=== PATIENT | female | born 1945 | race Caucasian/White ===

== ENCOUNTER 2017-11-27 10:55 | Emergency (ER) | payer MEDICARE, BC, SELFPAY ==
[2017-11-27 11:05] VITALS: BP 126/72; PULSE 63; RESP 18; TEMP 37.1; O2SAT 99
--- NOTE | 2017-11-27 12:34 | ED.HA ---
HPI - Headache General Chief Complaint: Headache Stated Complaint: HEADACHE Time Seen by Provider: 11/27/17 12:34 Source: patient and other (Friend at bedside) Mode of arrival: ambulatory Limitations: no limitations History of Present Illness HPI Narrative: This is a 72-year-old female who comes in with complaint of headache for 1 month patient states that the headache is pretty much been global and the yesterday seem to move over to the right side of her head. She then became concerned and came in for evaluation. She actually went to the walk-in clinic about 2 weeks ago for evaluation they recommended that she come to the ER for further of bowel Um but she elected to return home. Patient has not had any other neurologic changes. She states that her eye sometimes feel like they are not quite keeping up Um but otherwise no new vision changes. No facial swelling, no ear pain, no chest pain or shortness of breath. She has a history of carotid stenosis on the left side that was 50%. Patient has not had any abdominal pain. No nausea or vomiting. No new GI or urinary symptoms. She is not having any weakness or numbness in her extremities. No difficulties with speech or a Coby. She has tried several asng-ssr-eukbyux options such as codeine, Tylenol, Advil, Excedrin for migraines. Light does seem to bother little bit loud sounds do not seem to help. But she states it does not seem as bad as other friends who had migraines in the past. She does not have a history of migraines. She did notice that it started a couple weeks after she started a long-acting nitrate for her heart. She did stop the nitrate but continues to have symptoms. Related Data Home Medications Medication Instructions Recorded Confirmed aspirin 81 mg PO QDAY #30 tab 10/24/15 11/27/17 metformin [Glucophage] 500 mg PO BIDCC #0 tab 10/24/15 11/27/17 sertraline 50 mg PO QDAY #0 tab 10/24/15 11/27/17 nitroglycerin [Nitrostat] 0.4 mg SUBLINGUAL PRN PRN #0 10/31/16 11/27/17 buspirone 7.5 mg PO BID 11/27/17 11/27/17 cholecalciferol (vitamin D3) 1,000 unit PO DAILY 11/27/17 11/27/17 metoprolol succinate 25 mg PO DAILY 11/27/17 11/27/17 multivitamin 1 tab PO DAILY 11/27/17 11/27/17 rosuvastatin 40 mg PO DAILY 11/27/17 11/27/17 spironolactone 25 mg PO DAILY 11/27/17 11/27/17 Previous Rx's Medication Instructions Recorded pyjlaxeppm-oxwhskfdxjtnj-exrn 1 cap PO Q4H PRN #10 cap 11/27/17 [Fioricet] Allergies Allergy/AdvReac Type Severity Reaction Status Date / Time No Known Drug Allergies Allergy Verified 11/27/17 13:21 Review of Systems Review of Systems All systems reviewed & are unremarkable except as noted in HPI and below Constitutional Denies chills, Denies fever(s), Reports headache(s), Denies lethargy and Denies weakness Eyes Denies blurry vision, Denies diplopia, Denies loss of peripheral vision, Denies loss of vision and Reports other visual disturbances ENT Ears, Nose, Mouth, and Throat: Denies otalgia, Denies facial pain, Reports headache(s) and Denies neck pain Cardiovascular Denies chest pain, Denies irregular heart rhythm, Denies lightheadedness, Denies palpitations, Denies dyspnea, Denies dyspnea on exertion and Denies orthopnea Respiratory Denies cough, Denies dyspnea, Denies dyspnea on exertion and Denies wheezing Gastrointestinal Gastrointestinal: Denies abdominal pain, Denies change in bowel habits, Denies diarrhea, Denies nausea and Denies vomiting Musculoskeletal Denies abnormal gait, Denies neck pain and Denies tingling Integumentary/Breasts Denies rash Neurologic Reports as per HPI, Denies abnormal movements, Denies abnormal speech, Denies abnormal gait, Reports headache(s), Denies lack of coordination, Denies focal weakness, Denies loss of vision, Denies sensory deficit, Denies tingling, Denies paresthesias and Denies weakness Endocrine Denies palpitations Allergic/Immunologic Denies wheezing PFSH Medical History Coronary artery disease (Acute) Diabetes (Acute) Dyslipidemia (Acute) Hypertension (Acute) Surgical History H/O cardiac catheterization (Acute) Social History Smoking Status: Never smoker Exam Narrative Exam Narrative: GEN: well nourished, well appearing female, alert and oriented x 3, patient appears to be in no acute distress. HEENT: Atraumatic, pupils are equal round reactive to light, extraocular movements are intact, no nystagmus, nares are clear, TMs are clear with no fluid, there is no conjunctival pallor. Throat is clear without any exudates, erythema, tonsillar enlargement or uvular deviation HEART: Regular rate and rhythm without murmur, clicks, rubs. No carotid bruits, pulses are equal in upper and lower extremities LUNGS:Lungs clear to auscultation, no wheezes, rales, crackles, chest moves symmetrically ABD:bowel sounds normal, soft, non-tender, no guarding, rebound, rigidity, no masses noted, no hepatosplenomegaly MSCL: Non-tender, no muscle atrophy, muscles strength 5/5 upper and lower extremities, full range of motion, normal gait NEURO:CN 2-12 intact, sensation normal, reflexes 2/4 upper and lower extremities. finger nose finger test normal, heel browning test normal, normal gait Initial Vital Signs Initial Vital Signs: Vital Signs Temperature 98.7 F 11/27/17 11:05 Pulse Rate 63 11/27/17 11:05 Respiratory Rate 18 11/27/17 11:05 Blood Pressure 126/72 11/27/17 11:05 Pulse Oximetry 99 11/27/17 11:05 Scores NIH Stroke Scale Level of Conciousness: Alert, keenly responsive Ask month/age: Answers both questions correctly. Open/close eyes, close hand: Performs both tasks correctly Best gaze horizontal: Normal Visual miller: No visual loss Facial palsy: Normal symetrical movement Left arm drift: No drift for full 10 sec Right arm drift: No drift for full 10 sec Left leg drift: No drift for full 10 sec Right leg drift: No drift for full 10 sec Limb ataxia: Absent Sensory on face/arms/legs: Normal, no sensory loss Best language: No aphasia, normal Dysarthria: Normal Extinction or inattention: No abnormality Total NIH Stroke scale score: 0 Course Orders Ordered: ED Orders 11/27/17 13:01 CT head/brain wo con Stat 11/27/17 13:30 Basic Metabolic Panel Stat Complete Blood Count AUTO DIFF Stat Partial Thromboplastin Time Stat Prothrombin Time INR Stat Discontinued Medications Diphenhydramine HCl (Benadryl) 25 mg IV NOW ONE Stop: 11/27/17 13:01 Last Admin: 11/27/17 13:40 Dose: 25 mg Sodium Chloride (Normal Saline 0.9%) 1,000 mls @ 1,000 mls/hr IV BOLUS ONE Stop: 11/27/17 13:59 Last Infusion: 11/27/17 14:42 Dose: 0 mls/hr Admin: 11/27/17 13:41 Dose: 1,000 mls/hr Metoclopramide HCl (Reglan) 10 mg IV NOW ONE Stop: 11/27/17 13:01 Last Admin: 11/27/17 13:40 Dose: 10 mg Vital Signs - 8 hr 11/27/17 14:06 Pulse Rate 63 Respiratory Rate 15 Blood Pressure [Right Arm] 115/78 Pulse Oximetry 98 MDM - Headache Differential Diagnosis Differential diagnosis: Likely migraine, tension headache, subarachnoid hemorrhage, meningitis and other (CVA vs. mass) Lab Data Attestation: I reviewed the patient's lab results. Result diagrams: 11/27/17 13:30 11/27/17 13:30 Lab Results 11/27/17 11/27/17 11/27/17 Range/Units 13:30 13:30 13:30 WBC 4.8 (4.5-11.0) X10^3/uL RBC 4.18 (4.0-5.2) X10^6/uL Hgb 13.2 (12.0-16.0) g/dL Hct 37.5 (36-46) % MCV 89.7 (80-100) fL MCH 31.5 (26-34) PG MCHC 35.1 (30-36) % RDW 14.3 (11.6-14.8) % Plt Count 176 (150-400) X10^3/uL Neut % (Auto) 62.0 (50-75) % Lymph % (Auto) 27.5 (25-40) % [place] % (Auto) 8.0 (3-14) % Eos % (Auto) 1.8 L (2-4) % Baso % (Auto) 0.7 (0-2) % Neut # (Auto) 3000 (6008-9060) /uL PT 11.3 (10.1-12.7) SECONDS INR 1.1 (0.9-1.3) APTT 28 (26.4-36.2) SECONDS Sodium 141 (137-145) mmol/L Potassium 4.3 (3.4-5.1) mmol/L Chloride 102 (98-107) mmol/L Carbon Dioxide 27 (22-32) mmol/L BUN 17 (7-17) mg/dL Creatinine 0.70 (0.52-1.04) mg/dL Estimated GFR > 60.0 (>60) mL/min BUN/Creatinine Ratio 24.3 H (6-22) Glucose 103 (80-110) mg/dL Calcium 9.9 (8.4-10.2) mg/dL Imaging Data CT scan - head: Radiologist's impression: [address] [address] [address] Scan Report Signed Patient: Phoebe Lowery LMR#: [id number] : 1946Acct:[id number] Age/Sex: 72 / FDate of Service: 11/27/17 Loc: ED Accession Number: [id number] Procedure: CT head/brain wo con Ordering Provider: Eden Bowens D.O. PROCEDURE: CT HEAD/BRAIN WO CON INDICATIONS: headache x 1 month, now on right side. no hx migraines TECHNIQUE: Noncontrast 4.5 mm thick angled axial sections acquired from the foramen magnum to the vertex, with coronal and sagittal reformats. For radiation dose reduction, the following was used: automated exposure control, adjustment of mA and/or kV according to patient size. COMPARISON: None. FINDINGS: Image quality: Excellent. CSF spaces: Basal cisterns are patent. No extra-axial fluid collections. Ventricles are normal in size and shape. Brain: No midline shift. No intracranial masses or hemorrhage. Hayes-white matter interface is normal. Skull and face: Calvarium and visualized facial bones are intact, without suspicious lesions. Sinuses: Visualized sinuses and mastoids are clear. IMPRESSION: No acute intracranial disease process. Dictated by: Anahy Hendrix MD, PhD on 11/27/2017 at 13:51 Approved by: Anahy Hendrix MD, PhD on 11/27/2017 at 13:55 [facility] Narrative Medical decision making narrative: Patient had Ct imaging of head secondary to concern for bleed, mass or other intracranial cause of headache. CVA was considered but less likely with no focal neurologic changes. Patient was improved after medications and plan for follow up. We did discuss follow up with neurology would be appropriate if continuing symptoms. Patient labs did not show any lyte abnormalities that would cause symptoms, ect. Discharge Plan Departure Patient Disposition: Home Clinical Impression: Headache Discharge Date/Time: 11/27/17 14:43 Interventions: ED Discharge Assessment Last Done: 11/27/17 14:42 Instructions: DI for Headache Activity Restrictions/Additional Instructions: Follow-up with your primary care physician in the next 2-3 days for recheck. Call tomorrow morning for an appointment. Take medication as prescribed for headache, this medication can sometimes make you sleepy do not drive, perform hazards activities or make any major decisions while taking it. Make sure that your drinking plenty of fluids. Return to the emergency department for fevers greater than 100.4, new neurologic changes or difficulty with speech, new weakness or numbness, difficulty walking or Other new or concerning symptoms. Prescriptions: New qtyrovnpbx-kczxvgizntfpt-ozjs [Fioricet] 50-300-40 mg capsule 1 cap PO Q4H PRN (Reason: pain) Qty: 10 RF: 0 No Action metformin [Glucophage] 500 MG tablet 500 mg PO BIDCC Qty: 0 RF: 0 aspirin 81 MG tablet,delayed release (DR/EC) 81 mg PO QDAY Qty: 30 RF: 0 sertraline 50 MG tablet 50 mg PO QDAY Qty: 0 RF: 0 nitroglycerin [Nitrostat] 0.4 MG tablet, sublingual 0.4 mg Sublingual PRN PRN (Reason: Chest Pain) Qty: 0 RF: 0 multivitamin Tablet 1 tab PO DAILY RF: 0 spironolactone 25 mg Tablet 25 mg PO DAILY RF: 0 buspirone 7.5 mg Tablet 7.5 mg PO BID RF: 0 metoprolol succinate 25 mg Tablet Extended Release 24 Hr 25 mg PO DAILY RF: 0 cholecalciferol (vitamin D3) 1,000 unit Capsule 1,000 unit PO DAILY RF: 0 rosuvastatin 40 mg Tablet 40 mg PO DAILY RF: 0
--- NOTE | 2017-11-27 13:01 | DI.CT.S_ITS ---
PROCEDURE: CT HEAD/BRAIN WO CON INDICATIONS: headache x 1 month, now on right side. no hx migraines TECHNIQUE: Noncontrast 4.5 mm thick angled axial sections acquired from the foramen magnum to the vertex, with coronal and sagittal reformats. For radiation dose reduction, the following was used: automated exposure control, adjustment of mA and/or kV according to patient size. COMPARISON: None. FINDINGS: Image quality: Excellent. CSF spaces: Basal cisterns are patent. No extra-axial fluid collections. Ventricles are normal in size and shape. Brain: No midline shift. No intracranial masses or hemorrhage. Hayes-white matter interface is normal. Skull and face: Calvarium and visualized facial bones are intact, without suspicious lesions. Sinuses: Visualized sinuses and mastoids are clear. IMPRESSION: No acute intracranial disease process. Dictated by: Anahy Hendrix MD, PhD on 11/27/2017 at 13:51 Approved by: Anahy Hendrix MD, PhD on 11/27/2017 at 13:55
[2017-11-27 13:40] LABS: Add Manual Diff / Slide Review NO; Basophils Percent Auto 0.7 % (0-2); Eosinophils Percent Auto 1.8 % (2-4); Hematocrit 37.5 % (36-46); Hemoglobin 13.2 g/dL (12.0-16.0); Lymphocytes Percent Auto 27.5 % (25-40); Mean Corpuscular HGB Conc 35.1 % (30-36); Mean Corpuscular Hemoglobin 31.5 PG (26-34); Mean Corpuscular Volume 89.7 fL (80-100); Neutrophils Absolute Auto 3000 /uL (3000-5900); Platelet Count 176 X10^3/uL (150-400); Red Blood Cell Count 4.18 X10^6/uL (4.0-5.2); Red Cell Distribution Width 14.3 % (11.6-14.8); White Blood Cell Count 4.8 X10^3/uL (4.5-11.0)
[2017-11-27] MEDS: diphenhydrAMINE 50 MG/ML VIAL 25 MG IV (13:40)
[2017-11-27] MEDS: METOCLOPRAMIDE 10 MG/2 ML INJ IV (13:40)
[2017-11-27] MEDS: SODIUM CHLORIDE 0.9% 1,000 ML 1000 ML IV (13:41)
[2017-11-27 13:47] LABS: INR 1.1 (0.9-1.3); Prothrombin Time 11.3 SECONDS (10.1-12.7)
[2017-11-27 13:50] LABS: PTT Partial Thromboplastin Tim 28 SECONDS (26.4-36.2)
[2017-11-27 13:51] LABS: BUN Creatinine Ratio 24.3 (6-22); Blood Urea Nitrogen 17 mg/dL (7-17); Calcium 9.9 mg/dL (8.4-10.2); Carbon Dioxide 27 mmol/L (22-32); Chloride 102 mmol/L (98-107); Estimated Glomerular Filt Rate > 60.0 mL/min (>60); Glucose 103 mg/dL (80-110); HEMOLYSIS 17 (0-50); Potassium 4.3 mmol/L (3.4-5.1); Sodium 141 mmol/L (137-145)
[2017-11-27 14:06] VITALS: BP 115/78; PULSE 63; RESP 15; O2SAT 98
== END 2017-11-27 14:43 | disposition home or self-care (01) ==
PROVIDERS: Emergency Provider Emergency Medicine
DX: R51 Headache (principal)
CPT/HCPCS: 36591; 70450; 80048; 85025; 85610; 85730; 96361; 96374; 96375; 99283; 99284; J1200; J2765

== ENCOUNTER 2018-12-29 11:39 | Emergency (ER) | payer MEDICARE, BC, SELFPAY ==
[2018-12-29 11:40] VITALS: BP 155/95; PULSE 86; RESP 14; TEMP 36.7; O2SAT 97; BMI 30.4
--- NOTE | 2018-12-29 11:44 | ED_ITS ---
HPI - General Adult General Chief complaint: Dizziness Stated complaint: feels like heart is beating her head Time Seen by Provider: 12/29/18 11:41 Source: patient Mode of arrival: Ambulatory Limitations: no limitations History of Present Illness HPI narrative: 73-year-old female here for evaluation of a headache that she had this morning. She states that she felt like she could feel her heartbeat in her head. She states that she drink her coffee and took some aspirin this morning and this seemed to greatly improve her symptoms. Does appear that over the past month she has had daily symptoms like this. She states that the symptoms this morning were just worse than normal. In character the field just like her symptoms that she has had every morning. She was seen here in the emergency department approximately 1 month ago for similar symptoms. Was treated with Reglan and Benadryl which she states resolved her symptoms. Had a head CT at that time that was unremarkable. She states that she has never been diagnosed with migraine headaches. She has talked with her primary doctor who did put in referral to see Neurology however she missed that appointment because she forgot about it. She is not having any chest pain or shortness of breath. Does have a history of angina for which she occasionally takes nitro for this has been several weeks since she has had to do this. She did not take any nitro this morning. She described no numbness or tingling in arms or legs. She does get somewhat lightheaded when the symptoms are on. She does not live with anyone. She does have carbon monoxide detectors in her house and she states that these are not going off. She has no pets at home. By the time my evaluation states that her symptoms have greatly improved since this morning. She does states she drinks approximately 2-3 cups of coffee on a daily basis. She does admit that she does not drink coffee she gets a very bad headache. Related Data Home Medications Medication Instructions Recorded Confirmed aspirin 81 mg PO QDAY #30 tab 10/24/15 11/27/17 metformin [Glucophage] 500 mg PO BIDCC #0 tab 10/24/15 11/27/17 sertraline 50 mg PO QDAY #0 tab 10/24/15 11/27/17 nitroglycerin [Nitrostat] 0.4 mg SUBLINGUAL PRN PRN #0 10/31/16 11/27/17 buspirone 7.5 mg PO BID 11/27/17 11/27/17 cholecalciferol (vitamin D3) 1,000 unit PO DAILY 11/27/17 11/27/17 metoprolol succinate 25 mg PO DAILY 11/27/17 11/27/17 multivitamin 1 tab PO DAILY 11/27/17 11/27/17 rosuvastatin 40 mg PO DAILY 11/27/17 11/27/17 spironolactone 25 mg PO DAILY 11/27/17 11/27/17 losartan 25 mg PO DAILY 12/29/18 12/29/18 Previous Rx's Medication Instructions Recorded jjoybjbmby-nhiqrwlhrjjrx-flic 1 cap PO Q4H PRN #10 cap 11/27/17 [Fioricet] ytzblknkol-kilifdnlioizx-mtqn 1 cap PO Q6H PRN #10 cap 12/29/18 [Fioricet] Allergies Allergy/AdvReac Type Severity Reaction Status Date / Time No Known Drug Allergies Allergy Verified 11/27/17 13:21 Review of Systems Constitutional Constitutional: Denies chills, Denies fatigue, Denies fever(s) and Reports headache(s) Eyes Eyes: Denies change in vision and Denies photophobia ENT Ears, Nose, Mouth, and Throat: Denies vertigo, Reports dizziness, Reports headache(s), Denies neck pain, Reports disequilibrium, Denies sinus pressure and Denies sore throat Cardiovascular Cardiovascular: Denies chest pain, Reports palpitations and Denies dyspnea Respiratory Respiratory: Denies dyspnea Gastrointestinal Gastrointestinal: Denies abdominal pain, Denies nausea and Denies vomiting Musculoskeletal Musculoskeletal: Denies myalgias, Denies arthralgias, Denies neck pain and Denie s numbness Integumentary/Breasts Skin/Breast: Denies lesions and Denies rash Neurologic Neurologic: Denies behavioral changes, Denies vertigo, Reports dizziness, Reports headache(s), Denies numbness, Denies paresthesias and Reports disequilibrium Psychiatric Psychiatric: Denies behavioral changes Endocrine Endocrine: Denies fatigue and Reports palpitations Hematologic/Lymphatic Hematologic/Lymphatic: Denies easy bleeding and Denies easy bruising Patient History Medical History Coronary artery disease (Acute) Diabetes (Acute) Dyslipidemia (Acute) Hypertension (Acute) Surgical History (Updated 11/27/17 @ 13:31 by Eden Bowens DO) H/O cardiac catheterization (Acute) Social History Smoking Status: Never smoker alcohol intake frequency: 0-2 drinks per day Substance Use Type: does not use Exam Initial Vital Signs Initial Vital Signs: Vital Signs Temperature 98.1 F 12/29/18 11:40 Pulse Rate 86 12/29/18 11:40 Respiratory Rate 14 12/29/18 11:40 Blood Pressure 155/95 H 12/29/18 11:40 Pulse Oximetry 97 12/29/18 11:40 Const General: cooperative, comfortable, well developed, well groomed and No acute distress Orientation: alert, awake and oriented x3 HENMT Head: normal to inspection and normocephalic Eyes Pupils: PERRL EOM: EOM intact bilaterally Resp Effort & Inspection: normal respiratory effort Auscultation: clear to auscultation bilaterally Cardio Rate: regular rate Rhythm: regular rhythm GI Inspection: normal to inspection and non-distended Skin Lesions: no lesions Rashes: no rashes Neuro General: alert and awake Cognition: normal cognition Speech: speech normal Gait: normal gait Extrem General: normal to inspection and capillary refill normal Psych Appearance: grossly normal and well kempt Scores GCS [place] coma scale eye opening: Spontaneous [place] coma scale verbal response: Orientated [place] coma scale motor response: Obey commands [place] coma scale total score: 15 NIH Stroke Scale Level of Conciousness: Alert, keenly responsive Ask month/age: Answers both questions correctly. Open/close eyes, close hand: Performs both tasks correctly Best gaze horizontal: Normal Visual miller: No visual loss Facial palsy: Normal symetrical movement Left arm drift: No drift for full 10 sec Right arm drift: No drift for full 10 sec Left leg drift: No drift for full 10 sec Right leg drift: No drift for full 10 sec Limb ataxia: Absent Sensory on face/arms/legs: Normal, no sensory loss Best language: No aphasia, normal Dysarthria: Normal Extinction or inattention: No abnormality Total NIH Stroke scale score: 0 Course Orders Ordered: ED Orders 12/29/18 11:43 EKG-12 Lead Stat 12/29/18 11:50 Complete Blood Count AUTO DIFF Stat Comprehensive Metabolic Panel Stat Lipase Stat Vital Signs Vital signs: Vital Signs - 8 hr 12/29/18 11:40 12/29/18 12:00 Temperature 98.1 F Pulse Rate 86 82 Respiratory Rate 14 22 Blood Pressure 155/95 H Pulse Oximetry 97 99 Medical Decision Making Medical Records Medical records reviewed: Yes I reviewed the patient's medical records. Lab Data Lab results reviewed: Yes I reviewed the patient's lab results. Result diagrams: 12/29/18 11:50 12/29/18 11:50 Labs: Lab Results 12/29/18 12/29/18 Range/Units 11:50 11:50 WBC 4.6 (4.5-11.0) X10^3/uL RBC 4.72 (4.0-5.2) X10^6/uL Hgb 15.1 (12.0-16.0) g/dL Hct 43.3 (36-46) % MCV 91.6 (80-100) fL MCH 31.9 (26-34) PG MCHC 34.8 (30-36) % RDW 13.8 (11.6-14.8) % Plt Count 185 (150-400) X10^3/uL Neut % (Auto) 60.3 (50-75) % Lymph % (Auto) 26.9 (25-40) % [place] % (Auto) 9.6 (3-14) % Eos % (Auto) 1.8 L (2-4) % Baso % (Auto) 1.4 (0-2) % Neut # (Auto) 2700 (1600-0396) /uL Lymph # (Auto) 1200 (0646-2492) /uL [place] # (Auto) 400 (0-900) /uL Eos # (Auto) 100 (0-450) /uL Baso # (Auto) 100 (0-100) /uL Sodium 141 (137-145) mmol/L Potassium 4.4 (3.4-5.1) mmol/L Chloride 106 (98-107) mmol/L Carbon Dioxide 23 (22-32) mmol/L BUN 18 H (7-17) mg/dL Creatinine 0.70 (0.52-1.04) mg/dL Estimated GFR > 60.0 (>60) mL/min BUN/Creatinine Ratio 25.7 H (6-22) Glucose 125 H (80-110) mg/dL Calcium 10.2 (8.4-10.2) mg/dL Total Bilirubin 0.7 (0.2-1.3) mg/dL AST 30 (14-36) IU/L ALT 31 (9-52) IU/L Alkaline Phosphatase 68 (38-126) U/L Total Protein 8.4 H (6.3-8.2) g/dL Albumin 5.0 (3.5-5.0) g/dL Globulin 3.4 (1.7-4.1) g/dL Albumin/Globulin Ratio 1.5 (1.0-2.8) Lipase 77 (23-300) U/L ECG Data Attestation: I personally reviewed and interpreted this ECG as follows: Prior ECG tracings: not available for review Interpretation: Sinus rhythm Ventricular rate 82 LVH Left axis deviation Normal QRS Normal QTC No ST T wave changes MDM Narrative Medical decision making narrative: Patient's symptoms are improved by the time my evaluation. Has a normal neurologic exam. She has had daily symptoms for the past month. I have low suspicion for CVA or TIA. I do suspect that she is having a variant of a migraine seeing as how her symptoms do improved/resolved when she drinks caffeine in the morning and then as the caffeine wears off she starts again headache again. There also could be a component of caffeine tolerance/dependence. She states she has taken Fioricet in the past. Unsure if this has helped her symptoms. Considered other etiologies such as carbon monoxide poisoning since she is having symptoms in the mornings however this does not seem to be the case. She does have a primary provider. She has talk to the primary provider in the past about referral see Neurology which I do recommend. I feel given her workup today and her symptoms which she describes that head CT is not warranted. She was given strict return precautions and follow-up instructions. She expressed understanding and agreement with plan. Discharge Plan Departure Patient Disposition: Home Clinical Impression: Palpitations Headache Qualifiers: Headache type: other headache syndrome Qualified Code(s): G44.89 - Other headache syndrome Instructions: DI for Migraine Activity Restrictions/Additional Instructions: I recommend that you talk with your primary doctor about a new referral to see Neurology. Continue all of your medications as directed return to the emergency department for any new or worsening symptoms Prescriptions: New seybmnoksx-yarwtyzbgjuis-asga [Fioricet] 50-300-40 mg capsule 1 cap PO Q6H PRN (Reason: pain) Qty: 10 RF: 0 No Action metformin [Glucophage] 500 MG tablet 500 mg PO BIDCC Qty: 0 RF: 0 aspirin 81 MG tablet,delayed release (DR/EC) 81 mg PO QDAY Qty: 30 RF: 0 sertraline 50 MG tablet 50 mg PO QDAY Qty: 0 RF: 0 nitroglycerin [Nitrostat] 0.4 MG tablet, sublingual 0.4 mg Sublingual PRN PRN (Reason: Chest Pain) Qty: 0 RF: 0 multivitamin Tablet 1 tab PO DAILY RF: 0 spironolactone 25 mg Tablet 25 mg PO DAILY RF: 0 buspirone 7.5 mg Tablet 7.5 mg PO BID RF: 0 metoprolol succinate 25 mg Tablet Extended Release 24 Hr 25 mg PO DAILY RF: 0 cholecalciferol (vitamin D3) 1,000 unit Capsule 1,000 unit PO DAILY RF: 0 rosuvastatin 40 mg Tablet 40 mg PO DAILY RF: 0 wxysiqkdoz-akmzfgvsutgxk-fahk [Fioricet] 50-300-40 mg capsule 1 cap PO Q4H PRN (Reason: pain) Qty: 10 RF: 0 losartan 25 mg tablet 25 mg PO DAILY RF: 0
[2018-12-29 12:00] VITALS: BP 159/92; PULSE 80; PULSE 82; RESP 16; RESP 22; O2SAT 99
[2018-12-29 12:10] LABS: Alanine Aminotransferase 31 IU/L (9-52); Albumin Globulin Ratio 1.5 (1.0-2.8); Alkaline Phosphatase 68 U/L (38-126); Aspartate Aminotransferase 30 IU/L (14-36); BUN Creatinine Ratio 25.7 (6-22); Bilirubin Total 0.7 mg/dL (0.2-1.3); Blood Urea Nitrogen 18 mg/dL (7-17); Calcium 10.2 mg/dL (8.4-10.2); Carbon Dioxide 23 mmol/L (22-32); Chloride 106 mmol/L (98-107); Estimated Glomerular Filt Rate > 60.0 mL/min (>60); Globulin 3.4 g/dL (1.7-4.1); Glucose 125 mg/dL (80-110); HEMOLYSIS < 15 (0-50); Lipase 77 U/L (23-300); Potassium 4.4 mmol/L (3.4-5.1); Sodium 141 mmol/L (137-145); Total Protein 8.4 g/dL (6.3-8.2)
[2018-12-29 12:12] LABS: Add Manual Diff / Slide Review NO; Basophils Absolute Auto 100 /uL (0-100); Basophils Percent Auto 1.4 % (0-2); Eosinophils Absolute Auto 100 /uL (0-450); Eosinophils Percent Auto 1.8 % (2-4); Hematocrit 43.3 % (36-46); Hemoglobin 15.1 g/dL (12.0-16.0); Lymphocytes Absolute Auto 1200 /uL (1100-4500); Lymphocytes Percent Auto 26.9 % (25-40); Mean Corpuscular HGB Conc 34.8 % (30-36); Mean Corpuscular Hemoglobin 31.9 PG (26-34); Mean Corpuscular Volume 91.6 fL (80-100); Monocytes Absolute Auto 400 /uL (0-900); Monocytes Percent Auto 9.6 % (3-14); Neutrophils Absolute Auto 2700 /uL (1500-7000); Neutrophils Percent Auto 60.3 % (50-75); Platelet Count 185 X10^3/uL (150-400); Red Blood Cell Count 4.72 X10^6/uL (4.0-5.2); Red Cell Distribution Width 13.8 % (11.6-14.8); White Blood Cell Count 4.6 X10^3/uL (4.5-11.0)
[2018-12-29 12:45] VITALS: BP 130/78; PULSE 77; RESP 14; O2SAT 97
== END 2018-12-29 12:58 | disposition home or self-care (01) ==
PROVIDERS: Emergency Provider Emergency Medicine
DX: R00.2 Palpitations (principal); G44.89 Other headache syndrome
CPT/HCPCS: 36415; 80053; 83690; 85025; 93005; 99283; 99284

== ENCOUNTER 2020-06-25 05:18 | Emergency (ER) | payer MEDICARE, BC, SELFPAY ==
--- NOTE | 2020-06-25 05:22 | ED.GENADULT ---
HPI - General Adult General Stated complaint: thinks she has blood clot in lower left leg Time Seen by Provider: 06/25/20 05:20 Source: patient Mode of arrival: Ambulatory Limitations: no limitations History of Present Illness HPI narrative: 75-year-old female here for evaluation of a swelling/bruise to her left lower leg. States she went to sleep last night feeling fine and woke up this morning to let the dogs out when she noticed discomfort with standing in her left lower leg. She denies any trauma. She is not on antibiotics. No chest pain. No shortness of breath. No redness over the area. She states she was concerned about a blood clot because she received the 2nd COVID-19 vaccine 2 weeks ago. Related Data Home Medications Medication Instructions Recorded Confirmed aspirin 81 mg PO DAILY #30 tab 10/24/15 12/29/18 metformin [Glucophage] 250 mg PO QAM #0 tab 10/24/15 12/29/18 sertraline 25 mg PO QPM #0 tab 10/24/15 12/29/18 nitroglycerin [Nitrostat] 0.4 mg SUBLINGUAL PRN PRN #0 10/31/16 12/29/18 buspirone 3.75 mg PO QPM 11/27/17 12/29/18 cholecalciferol (vitamin D3) 1,000 unit PO DAILY 11/27/17 12/29/18 metoprolol succinate 25 mg PO DAILY 11/27/17 12/29/18 multivitamin 1 tab PO DAILY 11/27/17 12/29/18 rosuvastatin 40 mg PO QPM 11/27/17 12/29/18 spironolactone 25 mg PO DAILY 11/27/17 12/29/18 Fish Oil 1 cap PO DAILY 12/29/18 12/29/18 losartan 25 mg PO DAILY 12/29/18 12/29/18 Previous Rx's Medication Instructions Recorded vsgqrfzbcs-wswxuxrdtjsmn-xhuy 1 cap PO Q6H PRN #10 cap 12/29/18 [Fioricet] Allergies Allergy/AdvReac Type Severity Reaction Status Date / Time No Known Drug Allergies Allergy Verified 11/27/17 13:21 Review of Systems Constitutional Constitutional: Denies fever(s) and Denies headache(s) ENT Ears, Nose, Mouth, and Throat: Denies headache(s) Cardiovascular Cardiovascular: Denies chest pain and Denies dyspnea Respiratory Respiratory: Denies dyspnea Gastrointestinal Gastrointestinal: Denies abdominal pain Musculoskeletal Musculoskeletal: Denies tingling Comments: Left lower leg pain Integumentary/Breasts Comments: Bruising left lower leg Neurologic Neurologic: Denies headache(s) and Denies tingling Hematologic/Lymphatic On Anticoagulants: No Allergic/Immunologic Allergic/Immunologic: Denies urticaria Patient History Medical History Coronary artery disease Diabetes Dyslipidemia Hypertension Surgical History (Updated 11/27/17 @ 13:31 by Eden Bowens DO) H/O cardiac catheterization Social History Smoking Status: Never smoker Smoking Status: Never smoker alcohol intake frequency: 0-2 drinks per day Substance Use Type: does not use Exam Const General: cooperative and comfortable HENMT Head: normal to inspection Resp Effort & Inspection: normal respiratory effort Cardio Pulses: dorsalis pedis present on the left Skin Other: On the distal 1/3 of her left lower extremity on the anterior medial aspect there is a 3 cm x 5 cm area bruising. There is no surrounding erythema. Extrem Other: No tenderness along the posterior aspect of her calf. No tenderness with flexion extension of the ankle. No tenderness behind the left knee. Medical Decision Making MDM Narrative Medical decision making narrative: Patient's physical exam is very much consistent with a subcutaneous hematoma/bruise. She states she does not know of any specific trauma to that area. She has been ambulatory. I have low suspicion for fracture. Bedside ultrasound does not show any deep fluid collection that would be concerning for an abscess plus her physical exam is not consistent with an abscess. If she had said she hit her leg it would be a very clear-cut diagnosis of a contusion because of this however she denies any trauma. This still very much could be a spontaneous subcutaneous hematoma. I have low suspicion for DVT given her presentation. I feel we can hold on further workup for now. Provided reassurance to the patient. She was given return precautions. She expressed understanding and agreement. Discharge Plan Departure Patient Disposition: Home Clinical Impression: Hematoma and contusion Instructions: DI for Hematoma (Bruise) Activity Restrictions/Additional Instructions: I recommend you keep ice over the area and keep your leg elevated. Continue all of your medications as directed. Contact your Primary provider for a follow up. Return to the ER for any new or worsening symptoms. Prescriptions: No Action metformin [Glucophage] 500 MG tablet 250 mg PO QAM Qty: 0 RF: 0 aspirin 81 MG tablet,delayed release (DR/EC) 81 mg PO DAILY Qty: 30 RF: 0 sertraline 50 MG tablet 25 mg PO QPM Qty: 0 RF: 0 nitroglycerin [Nitrostat] 0.4 MG tablet, sublingual 0.4 mg Sublingual PRN PRN (Reason: Chest Pain) Qty: 0 RF: 0 multivitamin Tablet 1 tab PO DAILY RF: 0 spironolactone 25 mg Tablet 25 mg PO DAILY RF: 0 buspirone 7.5 mg Tablet 3.75 mg PO QPM RF: 0 metoprolol succinate 25 mg Tablet Extended Release 24 Hr 25 mg PO DAILY RF: 0 cholecalciferol (vitamin D3) 1,000 unit Capsule 1,000 unit PO DAILY RF: 0 rosuvastatin 40 mg Tablet 40 mg PO QPM RF: 0 losartan 25 mg tablet 25 mg PO DAILY RF: 0 Fish Oil 1 cap PO DAILY RF: 0 lavhpcznow-eivcutnatrykg-dndv [Fioricet] 50-300-40 mg capsule 1 cap PO Q6H PRN (Reason: pain) Qty: 10 RF: 0
[2020-06-25 05:44] VITALS: BP 162/77; PULSE 71; RESP 20; TEMP 36.2; O2SAT 98; BMI 31.8
== END 2020-06-25 05:58 | disposition home or self-care (01) ==
PROVIDERS: Emergency Provider Emergency Medicine
DX: S80.12XA Contusion of left lower leg, initial encounter (principal)
CPT/HCPCS: 99281

== ENCOUNTER 2022-08-23 09:48 | Day surgery (SDC) | payer MEDICARE, BC, SELFPAY ==
--- NOTE | 2022-08-23 | PATH_ITS ---
[facility] Accession Number: [id number] No. of containers..01 Tissue . 01 Material submitted: . rectum - RECTOCEL POLYP . 01 Diagnosis: Rectum, Polypectomy: Hyperplastic polyp. MRV 08/27/2022 1515 Local . 01 Electronically signed: . Trista Victoria MD, Pathologist NPI- [id number] . 01 Gross description: . The specimen is received in formalin labeled with the patient's name, , and rectocel polyp and consists of a single iniguez soft tissue fragment measuring 0.2 cm in greatest dimension. Submitted entirely in cassette A1. ([id number]) /MRV 08/25/2022 1827 Local . 01 Pathologist provided ICD-10: K62.1 . 01 CPT . 742026 Specimen Comment: A courtesy copy of this report has been sent to [phone] Performed at: 01 [facility] [address] [place] [address] Suite [facility], [place], [place] [id number] MD Herbie Wilcox MD Phone: [phone]
[2022-08-23 10:07] VITALS: BMI 30.1
[2022-08-23 10:19] VITALS: BP 124/82; PULSE 93; RESP 16; TEMP 36.8; O2SAT 100
[2022-08-23] MEDS: LACTATED RINGERS 1,000 ML 42 ML IV (10:19)
--- NOTE | 2022-08-23 10:45 | P.HP_ITS ---
History of Present Illness History of Present Illness Date Patient Seen: 08/23/22 Time Patient Seen: 10:45 Chief complaint: Colonoscopy Narrative: I reviewed the recent office note by Federico Heredia. No significant changes. [facility] Medical History Coronary artery disease Diabetes Dyslipidemia Hypertension Surgical History H/O cardiac catheterization Social History household members: none Smoking Status: Never smoker alcohol intake: current Meds Home Medications and Allergies Home Medications Medication Instructions Recorded Confirmed Type amlodipine 5 mg tablet 5 mg PO DAILY 08/23/22 08/23/22 History ezetimibe 10 mg tablet 10 mg PO DAILY 08/23/22 08/23/22 History Allergies Allergy/AdvReac Type Severity Reaction Status Date / Time No Known Drug Allergies Allergy Verified 11/27/17 13:21 Review of Systems Review of Systems ROS: Yes All systems reviewed with the patient and are negative except as otherwise documented Exam Vital Signs (past 8 hours): - 08/23/22 10:19 Temperature 98.2 F Pulse Rate 93 H Respiratory Rate 16 Blood Pressure 124/82 Pulse Oximetry 100 Oxygen Delivery Method Room Air Oxygen Delivery Method Room Air Const General: cooperative HENMT Head: normal to inspection Eyes General: appearance normal, both eyes and all related structures Neck Neck: normal visual inspection Chest Chest: normal inspection of the chest Resp Effort & Inspection: normal respiratory effort Cardio Rate: regular rate GI Inspection: normal to inspection Skin General: no rashes or lesions noted Neuro General: patient alert and patient awake Extrem General: normal to inspection and no pedal edema Psych Appearance: grossly normal Assessment & Plan Assessment & Plan narrative: 77-year-old female with diarrhea that appears to have been medication induced and has since resolved with discontinuation of said drug. She reports today for colon cancer screening. Colonoscopy is pursued today.
--- NOTE | 2022-08-23 10:48 | PM.PREOP ---
Pre-operative Note Interval Note History & Physical reviewed/Exam performed by Physician: Yes Changes to H&P: No ASA Class (for procedural sedation): II
--- NOTE | 2022-08-23 11:53 | PM.OP.COLON ---
Operative Date/Time/Diagnoses Date of procedure: 08/23/22 Time of procedure: 11:53 Pre-op diagnosis: Colon cancer screening Post-op diagnosis: same Procedure & Clinicians Study performed: Colonoscopy with cold snare polypectomy Same procedure as scheduled: Yes Indications: Colon cancer screening Surgeon: Ghassan Peña Procedure Notes SCOAP/Timeout: Done Procedure in detail: After the risks and benefits were explained, written and verbal informed consent was obtained. The patient was brought into the procedure room and placed into the left lateral decubitus position. Please see anesthesia notes for sedation details. Digital rectal examination was accomplished. The scope was introduced into the patient and advanced under direct visualization to the cecum as identified by the appendiceal orifice and ileocecal valve. The scope was slowly withdrawn to carefully examine the mucosa for any defects or lesions. Comprehensive imaging was accomplished throughout the rectum including the dentate line. The colon was decompressed, the scope was then removed from the patient who tolerated the procedure well. Adult colonoscope Bowel prep adequate Scope withdrawal time: 12 minutes Sedation minutes: 23 Complications: none Impression: The patient had rather extensive diverticulosis all through the sigmoid. There was a diminutive 5 mm polyp at the rectosigmoid junction removed with cold snare. There was another nipple like polyp in the rectosigmoid region that on closer inspection appeared to be an everted diverticulum so this was left alone. No additional significant pathology was appreciated throughout. Endoscopic diagnosis 1. Colon polyp 2. Diverticulosis Post-procedure Plan for aftercare: Await histopathology to determine whether surveillance colonoscopy would be prudent. Disposition: PACU
[2022-08-23 11:54] VITALS: BP 85/58; PULSE 87; RESP 20; TEMP 36.2; O2SAT 93
[2022-08-23 11:59] VITALS: BP 99/65; PULSE 90; RESP 18; O2SAT 97
[2022-08-23 12:00] VITALS: BP 88/51; PULSE 100; RESP 22; O2SAT 97
[2022-08-23 12:07] VITALS: BP 99/65; PULSE 87; RESP 16; TEMP 36.2; O2SAT 98
== END 2022-08-23 12:12 | disposition home or self-care (01) ==
PROVIDERS: PCP Nurse Practitioner; Referring Provider Internal Medicine Gastroenterology; Visit Provider Internal Medicine Gastroenterology
PROC: 0DJD8ZZ Inspection of Lower Intestinal Tract, Via Natural or Artificial Opening Endoscopic (ICD-10-PCS; CPT 45378; principal; 2022-08-23 11:00)
DX: Z12.11 Encounter for screening for malignant neoplasm of colon (principal); K57.30 Diverticulosis of large intestine without perforation or abscess without bleeding; K62.1 Rectal polyp
CPT/HCPCS: 45385; J2704

== ENCOUNTER 2022-11-12 12:53 | Emergency (ER) | payer MEDICARE, BC, SELFPAY ==
[2022-11-12] VITALS (8 sets, daily range): BP systolic 145–176; BP diastolic 73–85; PULSE 41–83; RESP 19–22; TEMP 36.8; O2SAT 96–100; BMI 27.4
--- NOTE | 2022-11-12 13:13 | DI.RAD.S_ITS ---
PROCEDURE: XR CHEST 1V INDICATIONS: chest pain TECHNIQUE: One view of the chest was acquired. COMPARISON: [facility], , CHEST 1 VIEW, 08/31/2015, 21:01. FINDINGS: Surgical changes and devices: None. Lungs and pleura: Lungs are clear. No pleural effusions or pneumothorax. Mediastinum: Mediastinal contours appear normal. Heart size is normal. Bones and chest wall: No suspicious bony lesions. Overlying soft tissues appear unremarkable. IMPRESSION: Portable chest within normal limits for age. Dictated by: Cosmo Mendiola M.D. on 11/12/2022 at 14:03 Approved by: Cosmo Mendiola M.D. on 11/12/2022 at 14:03
[2022-11-12] MEDS: ASPIRIN 81 MG CHEW TAB 324 MG PO (13:16)
[2022-11-12 13:23] LABS: Add Manual Diff / Slide Review NO; Basophils Absolute Auto 0 /uL (0-100); Basophils Percent Auto 0.6 % (0-2); Eosinophils Absolute Auto 0 /uL (0-450); Eosinophils Percent Auto 0.7 % (2-4); Hematocrit 40.7 % (36-46); Hemoglobin 14.2 g/dL (12.0-16.0); Lymphocytes Absolute Auto 900 /uL (1100-4500); Lymphocytes Percent Auto 20.6 % (25-40); Mean Corpuscular HGB Conc 34.8 % (30-36); Mean Corpuscular Hemoglobin 31.8 PG (26-34); Mean Corpuscular Volume 91.4 fL (80-100); Monocytes Absolute Auto 400 /uL (0-900); Monocytes Percent Auto 9.1 % (3-14); Neutrophils Absolute Auto 3000 /uL (1500-7000); Platelet Count 209 X10^3/uL (150-400); Red Blood Cell Count 4.45 X10^6/uL (4.0-5.2); Red Cell Distribution Width 14.5 % (11.6-14.8); White Blood Cell Count 4.3 X10^3/uL (4.5-11.0)
[2022-11-12 13:29] LABS: Alanine Aminotransferase 44 IU/L (<35); Albumin 4.9 g/dL (3.5-5.0); Albumin Globulin Ratio 1.4 (1.0-2.8); Alkaline Phosphatase 64 U/L (38-126); Aspartate Aminotransferase 41 IU/L (14-36); BUN Creatinine Ratio 21.7 (6-22); Bilirubin Total 0.8 mg/dL (0.2-1.3); Blood Urea Nitrogen 13 mg/dL (7-17); Carbon Dioxide 26 mmol/L (22-32); Chloride 103 mmol/L (98-107); Creatine Kinase 114 U/L (30-135); Estimated Glomerular Filt Rate > 60 mL/min (>60); Globulin 3.4 g/dL (1.7-4.1); Glucose 121 mg/dL (80-110); HEMOLYSIS 20 (0-50); Lipase 84 U/L (23-300); Magnesium 2.2 mg/dL (1.6-2.3); Potassium 3.8 mmol/L (3.4-5.1); Sodium 139 mmol/L (137-145); Total Protein 8.3 g/dL (6.3-8.2)
[2022-11-12 13:31] LABS: INR 0.9 (0.9-1.3); Prothrombin Time 10.6 SECONDS (10.1-12.7)
[2022-11-12 13:33] LABS: PTT Partial Thromboplastin Tim 28 SECONDS (26-36)
[2022-11-12 13:39] LABS: Troponin I < 0.012 ng/mL (0.01-0.034)
--- NOTE | 2022-11-12 13:52 | ED_ITS ---
HPI - Chest Pain General Chief Complaint: Chest Pain Stated Complaint: taken 2 nitro/shooting pain back/neck Time Seen by Provider: 11/12/22 13:45 Source: patient Mode of arrival: Ambulatory Limitations: no limitations History of Present Illness HPI narrative: Patient has history of cardiac catheterization with angioplasty many years ago has not had any cardiac workup in many years. Has not seen her operations and intelligence assistant in [place], dr sharma, patient states she had chest pain again this morning. Relieved with nitro. It is substernal radiating to the back of the neck. This is the worst she is ever had. No history of dissection. Patient in no distress at this time. No syncope no nausea sweating Related Data Home Medications Medication Instructions Recorded Confirmed amlodipine 5 mg tablet 5 mg PO DAILY 08/23/22 08/23/22 ezetimibe 10 mg tablet 10 mg PO DAILY 08/23/22 08/23/22 Allergies Allergy/AdvReac Type Severity Reaction Status Date / Time No Known Drug Allergies Allergy Verified 11/27/17 13:21 Review of Systems Review of Systems Narrative: GENERAL: negative chills, fatigue, malaise, fever, sweats. HEENT: negative sinus pain, ear pain, sore throat RESPIRATORY: negative dyspnea, cough CARDIOVASCULAR: Positive chest pain, negative palpitations GASTROINTESTINAL: negative nausea, vomiting, abdominal pain : negative dysuria, frequency, hematuria MUSCULOSKELETAL: negative muscle or bony pain SKIN: negative rash, skin lesions NEUROLOGIC: negative weakness, numbness ROS Unobtainable: All systems reviewed & are unremarkable except as noted in HPI and below Patient History Medical History (Updated 11/12/22 @ 13:57 by Sigifredo Curtis MD) Coronary artery disease Diabetes Dyslipidemia Hypertension Surgical History H/O cardiac catheterization Social History household members: none Smoking Status: Never smoker alcohol intake: current Smoking Status: Never smoker alcohol intake frequency: 0-2 drinks per day Alcohol type: wine Substance Use Type: does not use Exam Narrative Exam Narrative: GENERAL: in no distress, not toxic not dyspneic HEAD: Normocephalic. EYES: Pupils equal round ENT: Mucous membranes moist. NECK: Trachea midline. CARDIOVASCULAR: Regular rate and rhythm RESPIRATORY: Clear to auscultation. Breath sounds equal bilaterally. No wheezes, rales, or rhonchi. GASTROINTESTINAL: Abdomen soft, non-tender EXTREMITIES: No gross deformities. BACK: No flank tenderness. NEURO: AOx4. SKIN: Warm and dry PSYCH: Not anxious, is cooperative Initial Vital Signs Initial Vital Signs: Vital Signs Pulse Rate 83 11/12/22 13:02 Respiratory Rate 22 11/12/22 13:02 Pulse Oximetry 98 11/12/22 13:02 Course Orders Ordered: Discontinued Medications Aspirin (Aspirin 81 Mg Chew Tab) 324 mg PO NOW ONE Stop: 11/12/22 13:14 Last Admin: 11/12/22 13:16 Dose: 324 mg Documented By: JAME Ondansetron HCl (Ondansetron 4 Mg/2 Ml Inj) 4 mg IV NOW ONE Stop: 11/12/22 13:50 Last Admin: 11/12/22 14:06 Dose: Not Given Documented By: LEORA Vital Signs Vital signs: Vital Signs - 8 hr 11/12/22 13:07 11/12/22 13:02 11/12/22 13:30 Temperature 98.3 F Pulse Rate 79 83 Respiratory Rate 20 22 Blood Pressure 176/85 H 145/76 H Pulse Oximetry 98 98 Oxygen Delivery Method Room Air 11/12/22 13:30 11/12/22 14:00 11/12/22 14:00 Temperature Pulse Rate 65 62 Respiratory Rate 20 19 Blood Pressure 147/73 H Pulse Oximetry 98 96 Oxygen Delivery Method Room Air MDM - Chest Pain Lab Data 11/12/22 13:05 11/12/22 13:05 Labs: Lab Results 11/12/22 11/12/22 11/12/22 Range/Units 13:05 13:05 13:05 WBC 4.3 L (4.5-11.0) X10^3/uL RBC 4.45 (4.0-5.2) X10^6/uL Hgb 14.2 (12.0-16.0) g/dL Hct 40.7 (36-46) % MCV 91.4 (80-100) fL MCH 31.8 (26-34) PG MCHC 34.8 (30-36) % RDW 14.5 (11.6-14.8) % Plt Count 209 (150-400) X10^3/uL Neut % (Auto) 69.0 (50-75) % Lymph % (Auto) 20.6 L (25-40) % Hoke % (Auto) 9.1 (3-14) % Eos % (Auto) 0.7 L (2-4) % Baso % (Auto) 0.6 (0-2) % Neut # (Auto) 3000 (1568-5932) /uL Lymph # (Auto) 900 L (6045-6066) /uL Hoke # (Auto) 400 (0-900) /uL Eos # (Auto) 0 (0-450) /uL Baso # (Auto) 0 (0-100) /uL PT 10.6 (10.1-12.7) SECONDS INR 0.9 (0.9-1.3) APTT 28 (26-36) SECONDS Sodium 139 (137-145) mmol/L Potassium 3.8 (3.4-5.1) mmol/L Chloride 103 (98-107) mmol/L Carbon Dioxide 26 (22-32) mmol/L BUN 13 (7-17) mg/dL Creatinine 0.60 (0.52-1.04) mg/dL Estimated GFR > 60 (>60) mL/min BUN/Creatinine Ratio 21.7 (6-22) Glucose 121 H (80-110) mg/dL Calcium 10.0 (8.4-10.2) mg/dL Magnesium 2.2 (1.6-2.3) mg/dL Total Bilirubin 0.8 (0.2-1.3) mg/dL AST 41 H (14-36) IU/L ALT 44 H (<35) IU/L Alkaline Phosphatase 64 (38-126) U/L Total Creatine Kinase 114 (30-135) U/L Troponin I < 0.012 (0.01-0.034) ng/mL Total Protein 8.3 H (6.3-8.2) g/dL Albumin 4.9 (3.5-5.0) g/dL Globulin 3.4 (1.7-4.1) g/dL Albumin/Globulin Ratio 1.4 (1.0-2.8) Lipase 84 (23-300) U/L 11/12/22 Range/Units 14:53 WBC (4.5-11.0) X10^3/uL RBC (4.0-5.2) X10^6/uL Hgb (12.0-16.0) g/dL Hct (36-46) % MCV (80-100) fL MCH (26-34) PG MCHC (30-36) % RDW (11.6-14.8) % Plt Count (150-400) X10^3/uL Neut % (Auto) (50-75) % Lymph % (Auto) (25-40) % Hoke % (Auto) (3-14) % Eos % (Auto) (2-4) % Baso % (Auto) (0-2) % Neut # (Auto) (4597-6139) /uL Lymph # (Auto) (6212-4626) /uL Hoke # (Auto) (0-900) /uL Eos # (Auto) (0-450) /uL Baso # (Auto) (0-100) /uL PT (10.1-12.7) SECONDS INR (0.9-1.3) APTT (26-36) SECONDS Sodium (137-145) mmol/L Potassium (3.4-5.1) mmol/L Chloride (98-107) mmol/L Carbon Dioxide (22-32) mmol/L BUN (7-17) mg/dL Creatinine (0.52-1.04) mg/dL Estimated GFR (>60) mL/min BUN/Creatinine Ratio (6-22) Glucose (80-110) mg/dL Calcium (8.4-10.2) mg/dL Magnesium (1.6-2.3) mg/dL Total Bilirubin (0.2-1.3) mg/dL AST (14-36) IU/L ALT (<35) IU/L Alkaline Phosphatase (38-126) U/L Total Creatine Kinase (30-135) U/L Troponin I < 0.012 (0.01-0.034) ng/mL Total Protein (6.3-8.2) g/dL Albumin (3.5-5.0) g/dL Globulin (1.7-4.1) g/dL Albumin/Globulin Ratio (1.0-2.8) Lipase (23-300) U/L Imaging Data Chest x-ray: Radiologist's Impression: [address] [address] XRay Report Signed Patient: Phoebe Lowery MR#: [id number] : 1945 Acct:[id number] Age/Sex: 77 / F Date of Service: 11/12/22 Loc: ED Accession Number: [id number] ?? Procedure: XR chest 1V Ordering Provider: Sigifredo Curtis MD PROCEDURE:? XR CHEST 1V ? INDICATIONS:? chest pain ? TECHNIQUE:? One view of the chest was acquired.? ? COMPARISON:? [facility], , CHEST 1 VIEW, 08/31/2015, 21:01. ? FINDINGS:? ? Surgical changes and devices:? None.? ? Lungs and pleura:? Lungs are clear.? No pleural effusions or pneumothorax.? ? Mediastinum:? Mediastinal contours appear normal.? Heart size is normal.? ? Bones and chest wall:? No suspicious bony lesions.? Overlying soft tissues appear unremarkable.? ? ? IMPRESSION:? Portable chest within normal limits for age. ? ? Dictated by: Cosmo Mendiola M.D. on 11/12/2022 at 14:03 ? ? Approved by: Cosmo Mendiola M.D. on 11/12/2022 at 14:03 ? [facility] Narrative Medical decision making narrative: Patient has history of cardiac catheterization with angioplasty many years ago has not had any cardiac workup in many years. Has not seen her operations and intelligence assistant in [facility], dr sharma, patient states she had chest pain again this morning. Relieved with nitro. It is substernal radiating to the back of the neck. This is the worst she is ever had. No history of dissection. Patient in no distress at this time. No syncope no nausea sweating After history and exam CBC CMP troponin EKG chest x-ray aspirin MDM CC: Chest pain Complicating co-morbidities: Cardiac stent Data collected from: No recent visit for this complaint, history from patient Medical records reviewed: No recent visit for this complaint Differential considered: Includes but not limited to STEMI non-STEMI angina unstable angina pulmonary embolism aortic dissection Exam documented above, pertinent findings include: Nontender chest. No active chest pain, strong bilateral carotid and radial pulses Lab Test results independently reviewed as above. Pertinent findings: WBC 4.3 hemoglobin 14.2 AST 41 ALT 44 troponin less than 0.012 x2 Independently reviewed EKG normal sinus rhythm rate [address] elevation or depression Second EKG normal sinus rhythm rate [address] elevation or depression Imaging studies independently reviewed: Chest x-ray no acute finding Consultations: 2:09 p.m.. Spoke with [facility] operations and intelligence assistant Dr. Jonathan Rousseau, on-call for Dr. Sharma, at this time after review of patient's substernal chest pain radiating to the back and shoulders, does not feel this is concerning for acute coronary event. She had a stress test in October 2020 he has reviewed with [employer] [facility] records at his hospital at [facility], it was normal. Patient had a heart catheterization in 2012 which did not show heart stent. You would like patient have repeat cardiac laboratory studies and EKG. Recommends walking patient in the department as well and if chest pain returns then call back, otherwise patient to be discharged home and follow up with Dr. Sharma before she leaves for [place] 3:[address] Rousseau again. Repeat EKG and troponin unchanged. Is reassuring. Did review with him that patient had likely angioplasty when she was around 32 years old. Again, management and disposition does not change according to Dr. Rousseau. Patient to be discharged home and follow up with her operations and intelligence assistant, dr sharma. Treatments: Aspirin Re-evaluations: Reviewed results with patient. Patient chest pain-free. Awaiting call back from patient's Cardiology team 3:55 p.m.. Reviewed results with patient. Remains chest pain-free while here. Has been up and walking without any chest pain in the hallway. Return precautions reviewed with her. She does understand she needs to see her operations and intelligence assistant before moving to [place]. I have advised her not to travel until then. Return precautions reviewed. She desires discharge home Discussion: Appropriate for discharge home. Exam and laboratory studies are reassuring. Repeat troponins are negative. Remains chest pain-free. I did review with cardiology as well. Return precautions reviewed with patient. She desires discharge home. No D-dimer or CT chest indicated. Clinically not pulmonary embolism or aortic dissection. Blood pressure has improved during course of stay. Diagnosis: Acute chest pain Discharge Plan Departure Patient Disposition: Home Clinical Impression: Chest pain Instructions: DI for Chest Pain Activity Restrictions/Additional Instructions: Please do not travel/moved to [place]. Please see your operations and intelligence assistant next week before you move. At this time your results have been reviewed with cardiology services with your cardiology team. Return if worse if any questions or nadja rns. Continue home medications. Prescriptions: No Action amlodipine 5 mg Tablet 5 mg PO DAILY ezetimibe 10 mg Tablet 10 mg PO DAILY Referrals: Sarai Arredondo ARNP [Primary Care Provider] - Stand Alone Forms: Patient Portal/API
[2022-11-12 15:27] LABS: Troponin I < 0.012 ng/mL (0.01-0.034)
== END 2022-11-12 16:10 | disposition home or self-care (01) ==
PROVIDERS: Emergency Provider Emergency Medicine; PCP Nurse Practitioner
DX: R07.9 Chest pain, unspecified (principal)
CPT/HCPCS: 36415; 71045; 80053; 82550; 83690; 83735; 84484; 85025; 85610; 85730; 93005; 93010; 99284